=== PATIENT | male | born 1930 | race Two or more races ===

== ENCOUNTER 2019-01-15 06:03 | Emergency (ER) | payer OTHER, MEDICAID ==
[~2019-01-15] VITALS: Ht 170.2 cm; Wt 74.4 kg
[~2019-01-15 06:03] MED LIST: ATOR40TA52 PO; CARB25TA57 PO; GLIP-116 PO; PIOG1TAB51 OR; SITA100T7 PO; VALS40TA2 PO
[2019-01-15] MEDS ORDERED: SODIUM CHLORIDE 0.9% 2,000 ML IV ONE (06:58)
[2019-01-15 07:10] VITALS: BP 120/46
[2019-01-15 07:55] LABS: Basophils # (auto) 0 uL; Basophils % (auto) 0.3 % (0.0-2.0); Eosinophils # (auto) 0 uL; Hemoglobin 12.7 g/dL (13.5-17.5); Monocytes # (auto) 0.4 uL; Neutrophils # (auto) 2.6 uL; Nucleated Red Blood Cells % 0.1 %
[2019-01-15 07:57] LABS: Eosinophils % (auto) 1.1 % (0.0-7.0); Hematocrit 37.7 % (41.0-53.0); Lymphocytes % (auto) 24.9 % (10.0-50.0); Mean Corpuscular Hemoglobin 35.2 pg (28.0-32.0); Mean Corpuscular Hgb Conc. 33.7 g/dL (32.0-36.0); Mean Corpuscular Volume 104.7 fL (80.0-100.0); Monocytes % (auto) 9.4 % (0.0-12.0); Neutrophils % (auto) 64.3 % (37.0-80.0); Platelet Count (auto) 69 10^3/uL (140-450); Red Cell Distribution Width 13.2 % (11.8-14.3)
[2019-01-15 08:16] LABS: INR 1.09 (0.9-1.15)
[2019-01-15 08:21] LABS: Albumin 3.6 g/dL (3.4-5.0); BUN/Creatinine Ratio 17.3; Calcium 8.5 mg/dL (8.5-10.1); Potassium 4.2 mmol/L (3.5-5.1)
[2019-01-15 08:23] LABS: Bilirubin, Total 1.1 mg/dL (0.2-1.0); Total Protein 6.8 g/dL (6.4-8.2)
[2019-01-15 11:01] LABS: Urine Bacteria NONE SEEN /hpf (None Seen); Urine Blood Negative /uL (Negative); Urine Specific Gravity 1.011 (1.001-1.035); Urine WBC <1 /hpf (0 - 3)
== END 2019-01-15 11:49 | disposition home or self-care (01) ==
LOC: ER 06:03
DX: R68.2 Dry mouth, unspecified (principal); E11.9 Type 2 diabetes mellitus without complications; I10 Essential (primary) hypertension; I25.10 Atherosclerotic heart disease of native coronary artery without angina pectoris; Z79.899 Other long term (current) drug therapy
CPT/HCPCS: 36415; 71045; 80053; 81001; 84484; 85025; 85610; 85730; 93005; 99284; J7030

== ENCOUNTER 2019-01-19 19:42 | Emergency (ER) | payer OTHER, MEDICAID ==
[~2019-01-19] VITALS: Ht 170.2 cm; Wt 79.4 kg
[2019-01-19 21:15] LABS: Basophils # (auto) 0 uL; Basophils % (auto) 0.7 % (0.0-2.0); Eosinophils # (auto) 0 uL; Eosinophils % (auto) 0.3 % (0.0-7.0); Lymphocytes # (auto) 0.7 uL; Lymphocytes % (auto) 18.9 % (10.0-50.0); Mean Corpuscular Hemoglobin 35.7 pg (28.0-32.0); Mean Corpuscular Hgb Conc. 34.2 g/dL (32.0-36.0); Mean Corpuscular Volume 104.4 fL (80.0-100.0); Monocytes # (auto) 0.4 uL; Monocytes % (auto) 9.6 % (0.0-12.0); Neutrophils # (auto) 2.6 uL; Neutrophils % (auto) 70.5 % (37.0-80.0); Nucleated Red Blood Cells % 0.2 %; Platelet Count (auto) 61 10^3/uL (140-450); Red Blood Cells 3.35 10^6/uL (4.5-5.90); Red Cell Distribution Width 13.5 % (11.8-14.3); White Blood Cell 3.7 10^3/uL (4.4-10.8)
[2019-01-19 21:27] LABS: Alanine Aminotransferase 12 U/L (16-61); Albumin 3.5 g/dL (3.4-5.0); Anion Gap 6 (5-15); Aspartate Aminotransferase 29 U/L (15-37); BUN/Creatinine Ratio 13.6; Blood Urea Nitrogen 19 mg/dL (7-18); Calcium 8.3 mg/dL (8.5-10.1); Carbon Dioxide 26 mmol/L (21-32); Chloride 111 mmol/L (98-107); GFR African American 62 mL/min; GFR Non-African American 51 mL/min; Glucose 144 mg/dL (74-106); Magnesium 1.9 mg/dL (1.6-2.6); Potassium 4.2 mmol/L (3.5-5.1); Sodium 143 mmol/L (136-145)
[2019-01-19 21:32] LABS: Alkaline Phosphatase 45 U/L (45-117); Total Protein 6.4 g/dL (6.4-8.2)
[2019-01-19] MEDS ORDERED: SODIUM CHLORIDE 0.9% 500 ML IV ONE (22:45)
[2019-01-19 23:10] LABS: Urine Bacteria FEW /hpf (None Seen); Urine Blood TRACE /uL (Negative); Urine Specific Gravity 1.018 (1.001-1.035); Urine WBC <1 /hpf (0 - 3)
[2019-01-20] MEDS ORDERED: LORazepam 2MG/ML-1ML VIAL IV ONE (00:15)
[2019-01-20 00:22] LABS: INR 1.11 (0.9-1.15); Partial Thromboplastin Time 24.8 sec (23.64-32.05)
[2019-01-20 00:48] VITALS: BP 128/64
== END 2019-01-20 01:10 | disposition short-term general hospital (02) ==
LOC: ER 19:47
DX: I62.00 Nontraumatic subdural hemorrhage, unspecified (principal); G20 Parkinson's disease; G30.9 Alzheimer's disease, unspecified; F02.80 Dementia in other diseases classified elsewhere, unspecified severity, without behavioral disturbance, psychotic disturbance, mood disturbance, and anxiety; E11.22 Type 2 diabetes mellitus with diabetic chronic kidney disease; I13.0 Hypertensive heart and chronic kidney disease with heart failure and stage 1 through stage 4 chronic kidney disease, or unspecified chronic kidney disease; N18.9 Chronic kidney disease, unspecified; I50.9 Heart failure, unspecified; E78.5 Hyperlipidemia, unspecified; Z79.899 Other long term (current) drug therapy
CPT/HCPCS: 36415; 51702; 70450; 71045; 80053; 81001; 82962; 83605; 83735; 83880; 84484; 85025; 85610; 85730; 93005; 94761; 96374; 99285; J2060; J7040